=== PATIENT | male | born 1960 | race Caucasian/White ===

== ENCOUNTER 2017-01-27 13:38 | Observation (INO) ==
--- NOTE | 2017-01-27 14:38 | Emergency Department Note ---
Disposition Clinical Impression: Nystagmus, Dizziness Disposition: Admitted As Inpatient Condition: Good Referrals: Kayla Russell SPECIAL EDUCATION CASE MANAGER [Primary Care Provider] - Forms: ED Satisfaction Letter General Adult HPI - General Chief complaint: ED Neuro Symptoms/Deficit Stated complaint: neuro sx [id number] Time Seen by Provider: 01/27/17 13:52 Source: patient Limitations: no limitations Nursing Notes Reviewed: Yes Vital Signs Reviewed: Yes - History of Present Illness HPI Narrative: 56 y/o male who reports this morning he developed headache and dizziness. Unclear at time of onset. He has a history of a old stroke which left him with right-sided occasional symptoms. He denies any other focal neurologic signs. He did not pass out. He denies having any chest pain or shortness of breath. No new numbness or tingling in the arms or feet. He denies any abdominal pain or fever. He also admits to some intermittent confusion which began about that time. He is not currently feeling it. Pain Scale: 0 Consistency: constant Improves with: nothing Worsens with: nothing Associated symptoms: Reports: denies other symptoms Treatments Prior to Arrival: none - Related Data Home Medications Medication Instructions Recorded Confirmed Aspirin 81 mg PO DAILY 11/02/15 04/18/16 FLUoxetine HCl [Prozac] 20 mg PO DAILY 11/02/15 04/18/16 LORazepam [Ativan] 0.5 mg PO Q6H PRN 11/02/15 04/18/16 Lansoprazole [Prevacid] 30 mg PO DAILY 11/02/15 04/18/16 Lovastatin 40 mg PO HS 11/02/15 04/18/16 Bupropion HCl [Wellbutrin Xl] 300 mg PO DAILY 04/18/16 04/18/16 Gabapentin [Neurontin] 100 mg PO TID 04/18/16 04/18/16 Losartan Potassium [Cozaar] 50 mg PO DAILY 04/18/16 04/18/16 Metoprolol [Lopressor] 25 mg PO BID 04/18/16 04/18/16 hydrOXYzine HCl [Hydroxyzine HCl] 25 mg PO Q8H 04/18/16 04/18/16 Lisinopril [Zestril] 10 mg PO DAILY 11/17/16 11/17/16 Previous Rx's Medication Instructions Recorded cephALEXin [Keflex] 500 mg PO BID #10 capsule 04/18/16 Acetaminophen [Tylenol] 500 mg PO Q6HR PRN #20 tablet 11/17/16 PredniSONE [Isidoro] 5 mg PO DAILY 6 Days tablet. 11/17/16 Allergies Allergy/AdvReac Type Severity Reaction Status Date / Time No Known Allergies Allergy Verified 01/27/17 13:46 All systems ED: reviewed and negative except as stated. Constitutional: Denies: fever Eyes: Denies: vision change ENT ED: Denies: throat pain Cardiovascular: Denies: chest pain Respiratory: Denies: cough Gastrointestinal: Denies: abdominal pain Genitourinary: Denies: dysuria Musculoskeletal: Denies: back pain Integumentary: Denies: rash Endocrine: Denies: fatigue Past Medical History - Past Medical History Medical history: Reports: CVA, hyperlipidemia, hypertension Psychiatric history: Reports: anxiety, depression - Social History Smoking Status: Never smoker Smokeless Tobacco Status: No Alcohol use: Reports: none Drug use: Reports: none Physical Exam - General Limitations: no limitations General appearance: alert - Head Head exam: atraumatic - Eye Eye exam: Present: PERRL, other (Bilateral nystagmus during on extraocular motion testing. Sustained.) - ENT ENT exam: normal exam, normal oropharynx - Chest Chest inspection: Present: normal inspection - Respiratory Respiratory exam: Present: normal lung sounds bilaterally. Absent: respiratory distress - Cardiovascular Cardiovascular exam: Present: regular rate, normal rhythm - Abdominal Exam Abdominal exam: Present: soft, Non-Tender - Extremities Exam Extremities exam: Present: normal inspection - Neurological Exam Neurological exam: Present: alert, oriented X3 - Psychiatric Psychiatric exam: Present: normal affect, normal mood - Skin Skin exam: Present: warm, dry Course Course Narrative: I will not call a stroke alert because he does not have any focal neurologic signs at this time. However he does have bilateral horizontal nystagmus on extraocular motion testing. NIH scale of 0. Physical exam does not demonstrate any deficits. We will do a CT scan of the head and basic lab work. CT negative. Labwork negative. EKG normal. CXR negative. Will admit for an MRI due to concern for CVA due to new onset bilateral nystagmus at rest. Vital Signs Temperature 98.8 F 01/27/17 13:43 Pulse Rate 80 01/27/17 13:43 Respiratory Rate 18 01/27/17 13:43 Blood Pressure 151/100 01/27/17 13:43 O2 Sat by Pulse Oximetry 88 01/27/17 13:43 Temperature 98.8 F 01/27/17 13:43 Pulse Rate 69 01/27/17 15:16 Respiratory Rate 18 01/27/17 15:16 Blood Pressure 134/81 01/27/17 15:16 O2 Sat by Pulse Oximetry 94 01/27/17 15:16 Oxygen Delivery Oxygen Delivery Room Air Medical Decision Making - MDM Narrative Medical decision making narrative: I examined this patient and my medical decision-making was reviewed with the Resident Physician. I agree with the documented findings, disposition and treatment plan as described except to the extent set forth below. Patient was seen and evaluated on arrival with Dr. Joseph in EMS, they thought initially started having some weakness around 12:15 turns out that may have been 11:15 or could have been even before then history is unclear. He has had a history of stroke on the right side but has recovered he does have some slurring of his speech, he also has nystagmus which is fairly impressive and also vertiginous symptoms. The question is whether this could be stroke if this could be true vertigo for be something different he denies any nausea denies any chest pain is no focal cerebellar deficits on exam except as mentioned above. When you speaking with him it sounds like the onset of the symptoms are outside the three -hour window of CVA workup. We went ahead and CT does head here which shows no acute signs of stroke. His labs look good. Were going to bring him in for neuro consult MRI and further workup. He is in agreement with that plan. Impression is new onset vertigo with nystagmus and weakness. Rule out subacute CVA. - Medical Records Medical records reviewed: Yes I reviewed the patient's medical records. - Lab Data Lab results reviewed: Yes I reviewed the patient's lab results. Result diagrams: 01/27/17 14:43 01/27/17 14:43 Lab Results 01/27/17 01/27/17 01/27/17 Range/Units 14:43 14:43 14:43 WBC 6.1 (4.3-11.1) K/mcL RBC 4.93 (4.19-5.50) M/mcL Hgb 13.8 (12.9-16.9) g/dL Hct 42.5 (37.5-50.1) % MCV 86.2 (83.0-100.0) fL MCH 28.0 (28.0-33.3) pg MCHC 32.5 (31.6-35.5) g/dL RDW 13.8 (11.5-14.5) % Plt Count 288 (140-400) K/mcL MPV 9.4 (9.4-12.4) fL Immature Gran % 0.3 (0-4) % Seg Neutrophils % 60.6 % Lymphocytes % 30.5 % Monocytes % 6.2 % Eosinophils % 1.6 % Basophils % 0.8 % Neutrophils # 3.7 (1.6-8.9) K/mcL Lymphocytes # 1.9 (0.6-4.6) K/mcL Monocytes # 0.4 (0.0-1.3) K/mcL Eosinophils # 0.1 (0.0-0.6) K/mcL Basophils # 0.1 (0.0-0.2) K/mcL Immature Plt Fraction 3.0 (1.1-6.1) % Sodium 137 (136-145) mEq/L Potassium 4.1 (3.5-4.5) mEq/L Chloride 109 (98-109) mEq/L Carbon Dioxide 20 (19-29) mEq/L BUN 13 (8-26) mg/dL Creatinine 1.08 (0.72-1.25) mg/dL Est GFR ( Amer) > 60 (> 60) Est GFR (Non-Af Amer) > 60 (> 60) BUN/Creatinine Ratio 12 (6-26) Glucose 91 (70-99) mg/dL Calculated Osmolality 284 (280-300) Calcium 9.0 (8.6-10.8) mg/dL Troponin I 0.00 (0-0.03) ng/mL - Radiology Data Radiology results reviewed: Yes I reviewed the patient's radiology results. - EKG Data EKG #1 EKG attestation: Yes I reviewed and interpreted this EKG. EKG shows normal: sinus rhythm Rate: normal Rhythm: NSR [place]/QRS: normal When compared to previous EKG there are: no significant changes Interpretation: no acute changes
[2017-01-27 14:49] LABS: Basophils # 0.1 K/mcL (0.0-0.2); Basophils % 0.8 %; Eosinophils # 0.1 K/mcL (0.0-0.6); Eosinophils % 1.6 %; Hematocrit 42.5 % (37.5-50.1); Hemoglobin 13.8 g/dL (12.9-16.9); Immature Granulocytes % 0.3 % (0-4); Lymphocytes # 1.9 K/mcL (0.6-4.6); Lymphocytes % 30.5 %; Mean Corpuscular HGB Conc 32.5 g/dL (31.6-35.5); Mean Corpuscular Volume 86.2 fL (83.0-100.0); Mean Platelet Volume 9.4 fL (9.4-12.4); Monocytes # 0.4 K/mcL (0.0-1.3); Monocytes % 6.2 %; Neutrophils # 3.7 K/mcL (1.6-8.9); Platelet Count 288 K/mcL (140-400); Red Blood Count 4.93 M/mcL (4.19-5.50); Red Cell Distribution Width 13.8 % (11.5-14.5); Segmented Neutrophils % 60.6 %
[2017-01-27 15:02] LABS: BUN/Creatinine Ratio 12 (6-26); Blood Urea Nitrogen 13 mg/dL (8-26); Carbon Dioxide 20 mEq/L (19-29); Chloride 109 mEq/L (98-109); Glucose 91 mg/dL (70-99); Osmolality,Calculated 284 (280-300); Potassium 4.1 mEq/L (3.5-4.5); Sodium 137 mEq/L (136-145); eGFR For African Americans > 60 (> 60); eGFR For Non-African Americans > 60 (> 60)
[2017-01-27] MEDS ORDERED: Aspirin 325 MG TABLET PO ONE (15:14)
[2017-01-27] MEDS ORDERED: SUMAtriptan succinate 50 MG TABLET PO PRN (16:17)
[2017-01-27] MEDS ORDERED: hydrOXYzine pamoate 25 MG CAPSULE PO PRN (16:17)
[2017-01-27] MEDS ORDERED: Naloxone 0.4 MG/ML INJ IVP PRN (16:21)
--- NOTE | 2017-01-27 19:04 | Internal Med History&Physical ---
<eMlchor Moreno J - Last Filed: 01/27/17 18:57> Date of Encounter: 01/27/17 Time of Encounter: 18:57 Assessment and Plan (1) Vertigo Current visit: Yes Status: Acute Intermittent dizziness ongoing over the last couple of weeks. Dizziness is not exacerbated by exertion or relieved by rest. Does not appear to be inner ear pathology as it does not occurr with position change or head movement. Has seen PCP for this issues and for LUE and LLE extremity N/T. MRI revealed C- Spine DDD. MRI of head to r/o ischemic causes echocardiogram to r/o cardiac cause carotid Dopplers to assess for ischemic causes Orthostatic VS (2) TIA (transient ischemic attack) Current visit: Yes Status: Suspected Qualifiers: Qualified Code(s): G45.9 - Transient cerebral ischemic attack, unspecified (3) DVT prophylaxis Current visit: Yes Status: Acute Risk for DVT d/t prolonged immobility caused by hospital stay. Start Lovenox 40mg SC QD. Internal Medicine - H&P: HPI Chief complaint: H/A, dizziness, and CVA like symptoms Admitted From: Home Plans for Post Hospital Care: Home History of present illness: Mr. Todd is a 56 year old male with a PMH of prior CVA with intermittent left- sided deficits, HLD, HTN, anxiety and depression, migraines. Presented to [facility] today with headache, dizziness and strokelike symptoms. He reports that this morning he woke up had a unilateral left headache, slurred speech and was extremely dizzy. Additionally he notes left upper and lower extremity weakness, numbness and tingling that is intermittent. He denies any syncope, facial droop, or gait changes. His slurred speech, H/A , and dizziness have improved at this time. Workup in the ED unremarkable, CT of the head negative for hemorrhage, midline shift, mass effect or ischemia. He had an MRI asked weak of the cervical spine due to similar symptoms, MRI found cervical degenerative disc disease, which is likely responsive for his left upper extremity weakness numbness and tingling. MRI completed today was negative for ischemia. Troponin negative, metabolic panel unremarkable, CBC unremarkable. He does not appear to have had a stroke or TIA. Past Med Surg Social Fam HX - Past Medical History Medical history: CVA, hyperlipidemia, hypertension Psychiatric history: anxiety, depression - Social History Smoking Status: Never smoker Smokeless Tobacco Status: No Alcohol use: none Drug use: none - Family History Mother Name: Jocelin Todd Living Status: Age at : 63 Cause of : CHF Hx Family Cardiac Disorders: Yes Internal Medicine - H&P: Meds Aspirin 81 mg PO DAILY 11/02/15 [History] FLUoxetine HCl [Prozac] 20 mg PO DAILY 11/02/15 [History] LORazepam [Ativan] 0.5 mg PO QAM 11/02/15 [History] Lansoprazole [Prevacid] 30 mg PO DAILY 11/02/15 [History] Lovastatin 40 mg PO HS 11/02/15 [History] Bupropion HCl [Wellbutrin Xl] 300 mg PO DAILY 04/18/16 [History] Losartan Potassium [Cozaar] 50 mg PO DAILY 04/18/16 [History] Metoprolol [Lopressor] 25 mg PO BID 04/18/16 [History] Gabapentin [Neurontin] 300 mg PO TID 01/27/17 [History] [place]-3/Dha/Epa/Fish Oil [Fish Oil 1,000 mg Softgel] 1,000 mg PO DAILY 01/27/17 [History] SUMAtriptan succinate [Imitrex] 50 mg PO DAILY PRN 01/27/17 [History] hydrOXYzine pamoate [HydrOXYzine Pamoate] 25 mg PO Q8H PRN 01/27/17 [History] 3 Allergy/AdvReac Type Severity Reaction Status Date / Time No Known Allergies Allergy Verified 01/27/17 13:46 All Systems PM: A 10-system review of systems was performed and is negative for pertinent findings except as documented above in the HPI. - Constitutional Constitutional: fatigue - EENT Eyes: no blurry vision, no change in vision, no diplopia, no discharge, no loss of peripheral vision, no loss of vision, no pain, no photophobia Ears: no ear discharge, no ear pain, no tinnitus Nose, mouth and throat: no dysphagia, no nasal discharge, no neck pain, no sore throat - Cardiovascular Cardiovascular ROS IM: no chest pain, no diaphoresis, no dyspnea, no lightheadedness, no palpitations, no syncope - Respiratory Respiratory: no cough, no dyspnea, no wheezing, no excessive phlegm production - Gastrointestinal Gastrointestinal: no abdominal pain, no diarrhea, no hematemesis, no hematochezia, no melena, no nausea, no vomiting - Musculoskeletal Musculoskeletal ROS IM: no numbness, no tingling - Integumentary Integumentary IM: no rash, no unusual bruising - Neurological Neurological ROS: as per HPI, abnormal speech, dizziness, headache(s), no abnormal gait, no abnormal hearing, no abnormal movements, no behavioral changes , no confusion, no convulsions, no focal weakness, no frequent falls, no lack of coordination, no loss of vision, no numbness, no tingling, no tremor(s) - Hematologic/Lymphatic Hematologic/Lymphatic: no easy bruising - Constitutional Vitals: Temp Pulse Resp BP Pulse Ox 98.3 F 73 16 147/91 95 01/27/17 18:19 01/27/17 18:19 01/27/17 18:19 01/27/17 18:19 01/27/17 18:19 General appearance: Present: cooperative, A&O X 3, no acute distress, answers questions appropriately - Head Head exam: Present: atraumatic, normocephalic - Eye Eye exam: Present: EOMI, PERRL, conjuntiva pink, sclera anicteric Pupils: Present: PERRL - Neck Neck exam general surgery: Present: supple, trachea midline. Absent: lymphadenopathy - Respiratory Respiratory exam: Present: CTAB. Absent: accessory muscle use, rales, rhonchi, wheezes - Cardiovascular Cardiovascular exam: Present: RRR, +S1, +S2. Absent: diastolic murmur, gallop, rubs, systolic murmur - GI/Abdominal GI/Abdominal exam: Present: normal bowel sounds, soft, no peritoneal signs. Absent: distended, tenderness - Extremities Exam Extremities exam: Present: warm, radial pulses palpable and symmetrical. Absent : calf tenderness, cyanotic, pedal edema - Neurological Exam Neurological exam: Present: alert, CN II-XII intact, oriented X3. Absent: strengths equal and symetr throughout, pronater drift, facial droop, speech deficit - Expanded Neurological Exam Neuro motor strength exam: LUE: 4, RUE: 5, LLE: 5, RLE: 5 Coma Scale Eye Opening: Spontaneous Coma Scale Motor Response: Obeys Commands Coma Scale Verbal Response: Oriented Coma Scale Total: 15 - Psychiatric Psychiatric exam: Present: normal affect, normal mood - Skin Skin exam: Present: dry, intact Internal Med - H&P Results - Labs CBC & Chem 7: 01/27/17 14:43 01/27/17 14:43 - Diagnostic Studies MRI - head Status: image reviewed by me Additional comments: No evidence of ischemia CT scan - head Status: image reviewed by me Additional comments: No mass effect, midline shift, hemorrhage or ischemia. Chest x-ray Status: image reviewed by me Additional comments: Bibasilar atelectasis or infiltrates. <Moira Yen - Last Filed: 01/28/17 12:36> Date of Encounter: 01/28/17 Internal Medicine - H&P: HPI History of present illness: Mr. Todd is a 56 year old male All Systems PM: A 10-system review of systems was performed and is negative for pertinent findings except as documented above in the HPI. - Constitutional Vitals: Temp Pulse Resp BP Pulse Ox 97.7 F 60 14 135/86 96 01/28/17 11:36 01/28/17 11:36 01/28/17 11:36 01/28/17 11:36 01/28/17 11:36 Internal Med - H&P Results - Labs CBC & Chem 7: 01/28/17 03:54 01/28/17 03:54 Labs: Short CBC 01/28/17 Range/Units 03:54 WBC 5.8 (4.3-11.1) K/mcL Hgb 13.5 (12.9-16.9) g/dL Hct 42.7 (37.5-50.1) % Plt Count 276 (140-400) K/mcL Neutrophils # 3.3 (1.6-8.9) K/mcL BMP 01/28/17 03:54 Sodium 138 Potassium 3.9 Chloride 106 Carbon Dioxide 24 BUN 13 Creatinine 1.13 Glucose 99 Calcium 9.1 Liver Function 01/28/17 Range/Units 03:54 Total Bilirubin 1.0 (0.2-1.2) mg/dL AST 19 (5-34) Units/L ALT 19 (0-55) Units/L Alkaline Phosphatase 76 (38-126) Units/L Albumin 3.2 L (3.5-5.0) g/dL - Attending Attestation I have personally performed a face to face evaluation on this patient and I discussed the assessment and plan with the nurse practitioner. I have reviewed and agree with the documented care plan. History and Exam by me shows: Mr. Todd is a 56 year old male with a PMH of prior CVA with intermittent left- sided deficits, HLD, HTN, anxiety and depression, migraines. Presented to [facility] today with headache, dizziness and strokelike symptoms. He reports that this morning he woke up had a unilateral left headache, slurred speech and was extremely dizzy. Additionally he notes left upper and lower extremity weakness, numbness and tingling that is intermittent. He denies any syncope, facial droop, or gait changes. His slurred speech, H/A , and dizziness have improved at this time. Workup in the ED unremarkable, CT of the head negative for hemorrhage, midline shift, mass effect or ischemia. He had an MRI asked weak of the cervical spine due to similar symptoms, MRI found cervical degenerative disc disease, which is likely responsive for his left upper extremity weakness numbness and tingling. Gen: A, A, O x3 Chest : Diminished BS b/l Neuro: No acute focal deficits a/p 1. Acute vertigo 2. Acute TIA MRI of brain - negative for ischemia check 2 D Echo and Carotid doppler PT / OT eval on ASA
[2017-01-27] MEDS: Gabapentin 300 MG CAPSULE PO SCH (21:00)
[2017-01-28 04:13] LABS: Basophils % 0.7 %; Eosinophils # 0.1 K/mcL (0.0-0.6); Eosinophils % 1.7 %; Hematocrit 42.7 % (37.5-50.1); Hemoglobin 13.5 g/dL (12.9-16.9); Immature Granulocytes % 0.7 % (0-4); Immature Platelets 3.5 % (1.1-6.1); Lymphocytes # 1.9 K/mcL (0.6-4.6); Lymphocytes % 33.2 %; Mean Corpuscular HGB Conc 31.6 g/dL (31.6-35.5); Mean Corpuscular Hemoglobin 27.5 pg (28.0-33.3); Mean Platelet Volume 9.5 fL (9.4-12.4); Monocytes # 0.4 K/mcL (0.0-1.3); Monocytes % 7.2 %; Neutrophils # 3.3 K/mcL (1.6-8.9); Platelet Count 276 K/mcL (140-400); Red Blood Count 4.91 M/mcL (4.19-5.50); Red Cell Distribution Width 13.9 % (11.5-14.5); Segmented Neutrophils % 56.5 %
[2017-01-28 04:30] LABS: Alanine Aminotransferase 19 Units/L (0-55); Albumin 3.2 g/dL (3.5-5.0); Albumin/Globulin Ratio 0.9 (1.1-2.2); Alkaline Phosphatase 76 Units/L (38-126); Aspartate Amino Transferase 19 Units/L (5-34); BUN/Creatinine Ratio 12 (6-26); Blood Urea Nitrogen 13 mg/dL (8-26); Calcium 9.1 mg/dL (8.6-10.8); Carbon Dioxide 24 mEq/L (19-29); Chloride 106 mEq/L (98-109); Chol/HDL Ratio 5.4 (0-4.9); Cholesterol 205 mg/dL (< 200); Globulin 3.5 g/dL (2.4-3.5); Glucose 99 mg/dL (70-99); HDL Cholesterol 38 mg/dL (40-59); LDL Cholesterol,Calculated 122 mg/dL (0-99); Osmolality,Calculated 286 (280-300); Potassium 3.9 mEq/L (3.5-4.5); Sodium 138 mEq/L (136-145); Total Protein 6.7 g/dL (6.0-8.3); Triglycerides 223 mg/dL (< 150); eGFR For African Americans > 60 (> 60); eGFR For Non-African Americans > 60 (> 60)
[2017-01-28] MEDS ORDERED: *HR* Enoxaparin 40 MG/0.4 ML SYRINGE SQ SCH (06:00)
[2017-01-28] MEDS ORDERED: Perflutren Lipid Microsphere 1.3 ML in 0.9 % Sodium Chloride 8.7 ML IVP ONE (07:30)
[2017-01-28] MEDS ORDERED: Perflutren Lipid Microsphere 2 ML VIAL ONE (07:35)
[2017-01-28] MEDS ORDERED: Aspirin 81 MG TAB.CHEW PO SCH (09:00)
[2017-01-28] MEDS ORDERED: *HR* LORazepam 0.5 MG TABLET PO SCH (09:00)
[2017-01-28] MEDS ORDERED: BuPROPion XL (24 HR) 150 MG TABLET PO SCH (09:00)
[2017-01-28] MEDS ORDERED: (Omega-3/Dha/Epa/Fish Oil [Fish Oil 1,000 Mg Softgel]) PO SCH (09:00)
[2017-01-28] MEDS ORDERED: FLUoxetine 20 MG CAPSULE PO SCH (09:00)
[2017-01-28] MEDS: Gabapentin 300 MG CAPSULE PO SCH (09:11)
--- NOTE | 2017-01-28 10:55 | Internal Med Progress Note ---
<HortenciatamaralanMoustapha sanchez - Last Filed: 01/28/17 17:00> Date of Encounter: 01/28/17 Time of Encounter: 10:35 - Assessment and plan (1) Vertigo Current Visit: Yes Status: Acute Assessment and plan: Intermittent dizziness ongoing over the last couple of weeks. Dizziness is not exacerbated by exertion or relieved by rest. Does not appear to be inner ear pathology as it does not occur with position change or head movement. MRI of head reveals no acute infarct. CT of head reveal no acute intracranial abnormalities. Troponin negative, metabolic panel unremarkable, CBC unremarkable. Patient has Saccadic horitzontal nystagmus on examination. - Echocardiogram results pending. - B/L carotid doppler results pending. (2) TIA (transient ischemic attack) Current Visit: Yes Status: Suspected Assessment and plan: See plan above. Qualifiers: Qualified Code(s): G45.9 - Transient cerebral ischemic attack, unspecified (3) DVT prophylaxis Current Visit: Yes Status: Acute Assessment and plan: On lovenox. - Subjective Interval history: Mr. Todd is a 56 year old male with a PMH of prior CVA with intermittent left- sided deficits, HLD, HTN, anxiety and depression, migraines. Presented to [facility] today with headache, dizziness and strokelike symptoms. Patient says that he was sitting in his chair at work when he suddenly started to feel dizzy, nauseous, and had vision blurriness. He was also complaining of a unilateral ZIEGLER. Patient also states that he was experiencing slurring of speech. He denies LOC. Additionally he notes left upper and lower extremity weakness, numbness and tingling that is intermittent. He denies any chest pain. He denies any syncope, facial droop, or gait changes. When seen today, patient denies any ZIEGLER, dizziness, nausea, vomiting, chest pain, or abdominal pain. He admits to SOB, that it has been at his baseline. - Constitutional Vitals: Temp Pulse Resp BP Pulse Ox 97.7 F 59 18 143/91 95 01/28/17 07:19 01/28/17 07:19 01/28/17 07:19 01/28/17 07:19 01/28/17 07:19 General appearance: Present: cooperative, A&O X 3, morbidly obese, no acute distress, answers questions appropriately - Respiratory Respiratory exam: Present: CTAB. Absent: respiratory distress, rhonchi, wheezes , tachypnea - Cardiovascular Cardiovascular exam: Present: RRR, +S1, +S2. Absent: diastolic murmur, systolic murmur - GI/Abdominal GI/Abdominal exam: Present: normal bowel sounds, soft. Absent: guarding, rebound, tenderness - Neurological Exam Neurological exam: Present: CN II-XII intact, reflexes normal. Absent: facial droop, speech deficit Additional comments: Patient has horizontal nystagmus in both directions. Patient has decreased sensation on his LUE and LLE. He displays 5/5 strength in his UE and LE bilaterally. Internal Medicine: Result - Labs CBC & Chem 7: 01/28/17 03:54 01/28/17 03:54 Labs: Short CBC 01/28/17 Range/Units 03:54 WBC 5.8 (4.3-11.1) K/mcL Hgb 13.5 (12.9-16.9) g/dL Hct 42.7 (37.5-50.1) % Plt Count 276 (140-400) K/mcL Neutrophils # 3.3 (1.6-8.9) K/mcL BMP 01/28/17 03:54 Sodium 138 Potassium 3.9 Chloride 106 Carbon Dioxide 24 BUN 13 Creatinine 1.13 Glucose 99 Calcium 9.1 Liver Function 01/28/17 Range/Units 03:54 Total Bilirubin 1.0 (0.2-1.2) mg/dL AST 19 (5-34) Units/L ALT 19 (0-55) Units/L Alkaline Phosphatase 76 (38-126) Units/L Albumin 3.2 L (3.5-5.0) g/dL Consult Discharge Plan - Plan Instructions: Heart Failure (GEN) Referrals: Kayla Russell HARVEST CONTRACTOR [Primary Care Provider] - Prescriptions: Aspirin 325 mg PO DAILY #30 tablet <Messi Aguayo - Last Filed: 01/28/17 17:15> Date of Encounter: 01/28/17 - Constitutional Vitals: Temp Pulse Resp BP Pulse Ox 97.7 F 60 14 135/86 96 01/28/17 11:36 01/28/17 11:36 01/28/17 11:36 01/28/17 11:36 01/28/17 11:36 Internal Medicine: Result - Labs CBC & Chem 7: 01/28/17 03:54 01/28/17 03:54 Labs: Short CBC 01/28/17 Range/Units 03:54 WBC 5.8 (4.3-11.1) K/mcL Hgb 13.5 (12.9-16.9) g/dL Hct 42.7 (37.5-50.1) % Plt Count 276 (140-400) K/mcL Neutrophils # 3.3 (1.6-8.9) K/mcL BMP 01/28/17 03:54 Sodium 138 Potassium 3.9 Chloride 106 Carbon Dioxide 24 BUN 13 Creatinine 1.13 Glucose 99 Calcium 9.1 Liver Function 01/28/17 Range/Units 03:54 Total Bilirubin 1.0 (0.2-1.2) mg/dL AST 19 (5-34) Units/L ALT 19 (0-55) Units/L Alkaline Phosphatase 76 (38-126) Units/L Albumin 3.2 L (3.5-5.0) g/dL - Attending Attestation I examined this patient and my medical decision-making was reviewed with the Resident Physician. I agree with the documented findings, disposition and treatment plan as described except to the extent set forth below. Patient presented with dizziness and slurred speech. On exam he is morbidly obese, no acute distress. Heart tones are regular with no murmur. Plan: Continue TIA workup. Monitor blood pressure. Continue heart monitoring.
[2017-01-28 11:40] VITALS: BP 135/86
--- NOTE | 2017-01-28 13:55 | Discharge Summary ---
<Moustapha Wolff - Last Filed: 01/28/17 16:57> Date of Encounter: 01/28/17 Time of Encounter: 10:35 - Discharge Diagnosis (1) Vertigo Priority: Primary Status: Acute (2) TIA (transient ischemic attack) Priority: Primary Status: Suspected Qualifiers: Qualified Code(s): G45.9 - Transient cerebral ischemic attack, unspecified (3) DVT prophylaxis Priority: Primary Status: Acute - Discharge Medications Prescriptions: Aspirin 325 mg PO DAILY #30 tablet Home Medications: FLUoxetine HCl [Prozac] 20 mg PO DAILY 11/02/15 [History] LORazepam [Ativan] 0.5 mg PO QAM 11/02/15 [History] Lansoprazole [Prevacid] 30 mg PO DAILY 11/02/15 [History] Lovastatin 40 mg PO HS 11/02/15 [History] Bupropion HCl [Wellbutrin Xl] 300 mg PO DAILY 04/18/16 [History] Losartan Potassium [Cozaar] 50 mg PO DAILY 04/18/16 [History] Metoprolol [Lopressor] 25 mg PO BID 04/18/16 [History] Gabapentin [Neurontin] 300 mg PO TID 01/27/17 [History] [place]-3/Dha/Epa/Fish Oil [Fish Oil 1,000 mg Softgel] 1,000 mg PO DAILY 01/27/17 [History] SUMAtriptan succinate [Imitrex] 50 mg PO DAILY PRN 01/27/17 [History] hydrOXYzine pamoate [HydrOXYzine Pamoate] 25 mg PO Q8H PRN 01/27/17 [History] Aspirin 325 mg PO DAILY #30 tablet 01/28/17 [Rx] Allergies/Adverse Reactions: 3 Allergy/AdvReac Type Severity Reaction Status Date / Time No Known Allergies Allergy Verified 01/27/17 13:46 Procedures/tests Complete & Pending: Procedures Performed prior 72 hours Category Date Time Status EV carotid duplex imaging BI Stat Y 01/28/17 10:00 Completed EV echocardiogram w enhance Stat Y 01/28/17 10:00 Completed Date of admission: 01/27/17 16:20 Primary care physician: Kayla Russell CNP Discharging clinician: Messi Davenport) Anticipated date of discharge: 01/28/17 - Patient Status Disposition: Home, Self-Care Condition: Good Functional capacity at discharge: independent ambulation Overall status at discharge: patient is progressing back to baseline - Discharge Instructions Instructions: Heart Failure (GEN) Follow Up With: Kayla Russell CNP [Primary Care Provider] - - Diet and Activity Activity: resume usual activities as tolerated Diet: low fat, low cholesterol Interval History: Mr. Todd is a 56 year old male with a PMH of prior CVA with intermittent left- sided deficits, HLD, HTN, anxiety and depression, migraines. Presented to [facility] today with headache, dizziness and strokelike symptoms. Hospital course: Mr. Todd is a 56 year old male with a PMH of prior CVA with intermittent left- sided deficits, HLD, HTN, anxiety and depression, migraines. Presented to [facility] today with headache, dizziness and strokelike symptoms. Patient says that he was sitting in his chair at work when he suddenly started to feel dizzy, nauseous, and had vision blurriness. He was also complaining of a unilateral ZIEGLER. Patient also states that he was experiencing slurring of speech. He denies LOC. Additionally he notes left upper and lower extremity weakness, numbness and tingling that is intermittent. He denies any chest pain. He denies any syncope, facial droop, or gait changes. His dizziness is not exacerbated by exertion or relieved by rest. It Does not appear to be inner ear pathology as it does not occur with position change or head movement. MRI of head revealed no acute infarct. CT of head revealed no acute intracranial abnormalities. Troponins were negative, metabolic panel unremarkable, CBC unremarkable. Carotid u/s revealed non- stenotic plaques bilaterally. Echo revealed an EF of 60%. When seen today, patient denies any ZIEGLER, dizziness, nausea, vomiting, chest pain, or abdominal pain. He admits to SOB, but that has been at his baseline. He displayed no slurring on speech. He had decreased sensation on his LUE and LLE, but he states that it has been his baseline. His motor strength was intact bilaterally. Patient does have a horizontal nystagmus on exam. Patient does not appear to have suffered a TIA and his symptoms might be attributed to his migrane. Patient will be discharged with 325 mg aspirin for TIA prevention since he presents with risk factors of HTN, hyperlipidemia, morbid obesity, and previous CVA. Patient should also adhere to a low-fat diet decrease his risk factors. He should follow-up with his PCP to monitor the progress of his risk factor reduction. - Time Spent with Patient Total time spent providing and/or coordinating discharge services: Greater than 30 minutes - Constitutional Vitals: Temp Pulse Resp BP Pulse Ox 97.7 F 60 14 135/86 96 01/28/17 11:36 01/28/17 11:36 01/28/17 11:36 01/28/17 11:36 01/28/17 11:36 General appearance: Present: cooperative, A&O X 3, morbidly obese, no acute distress, answers questions appropriately - Respiratory Respiratory exam: Present: CTAB. Absent: respiratory distress, rhonchi, wheezes , tachypnea - Cardiovascular Cardiovascular exam: Present: RRR, +S1, +S2. Absent: diastolic murmur, systolic murmur - GI/Abdominal GI/Abdominal exam: Present: normal bowel sounds, soft. Absent: guarding, rebound, tenderness - Neurological Exam Neurological exam: Present: CN II-XII intact, oriented X3, reflexes normal, strengths equal and symetr throughout. Absent: facial droop, speech deficit Additional comments: Decreased sensation of LUE and LLE. 5/5 motor strength in UE and LE bilaterally. <Messi Aguayo - Last Filed: 01/28/17 17:18> Date of Encounter: 01/28/17 Procedures/tests Complete & Pending: Procedures Performed prior 72 hours Category Date Time Status EV carotid duplex imaging BI Stat Y 01/28/17 10:00 Completed EV echocardiogram w enhance Stat Y 01/28/17 10:00 Completed Date of admission: 01/27/17 16:20 [facility] Mr. Todd is a 56 year old male - Time Spent with Patient Total time spent providing and/or coordinating discharge services: - Constitutional Vitals: Temp Pulse Resp BP Pulse Ox 97.7 F 60 14 135/86 96 01/28/17 11:36 01/28/17 11:36 01/28/17 11:36 01/28/17 11:36 01/28/17 11:36 - Attending Attestation I examined this patient and my medical decision-making was reviewed with the Resident Physician. I agree with the documented findings, disposition and treatment plan as described except to the extent set forth below. Patient is awake alert oriented 3. Neurologic exam is nonfocal. Echocardiogram shows normal ejection fraction. MRI of the brain shows no evidence of acute infarct. Carotid Doppler results preliminary with nonstenotic plaque bilaterally. Patient was advised to adhere to a low-cholesterol, low-calorie diet. He was advised to follow-up with PCP regarding weight loss regimen. Patient is medically stable for discharge home.
--- NOTE | 2017-01-30 08:29 | Carotid Imaging Report ---
Carotid Duplex Patient Name:Stevie Todd Order Number:[id number] Procedure Date:01/28/2017 Date:1960Age:56 yrs Gender:Male Lt BP:136 / 83 mmHg Rt.BP:136 / 83 mmHgHeart Rate: Location:[facility] Room #: 13 Department Head:Mary Kiser, RDCS Referring MD:Melchor Moreno CNP hearing screen coordinator:Kayla Russell CNP Reading MD:Julio Sanchez MD Study Quality:Technically Difficult Primary Indications:Dizziness Risk Factors Yes/No Hypertension Yes Diabetes No Hypercholesterolemia Yes Smoker Previous Quit Hx of TIA No Hx of CVA No Hx of CAD/PTCA No Previous Vascular Surgery No Impressions: Findings: Bilateral carotid system has nonstenotic plaque. Findings Carotid Duplex: Right: The right proximal common carotid artery has a PSV of 86 cm/s and a EDV of 21 cm/s. The right mid common carotid artery has turbulent flow without plaque with a PSV of 118 cm/s and a EDV of 31 cm/s. The right distal common carotid artery has a PSV of 94 cm/s and a EDV of 30 cm/s. There is nonstenotic plaque in the right bifurcation with a PSV of 91 cm/s and a EDV of 21 cm/s. There is irregular heterogeneous plaque. The right proximal internal carotid artery has a PSV of 67 cm/s and a EDV of 28 cm/s. The right mid internal carotid artery has a PSV of 74 cm/s and a EDV of 33 cm/s. There is nonstenotic plaque in the right distal internal carotid artery with a PSV of 84 cm/s and a EDV of 31 cm/s. There is irregular heterogeneous plaque. The right eca has a PSV of 108 cm/s and a EDV of 13 cm/s. The right vertebral artery has a PSV of 42 cm/s and a EDV of 18 cm/s. DIVING DISTAL ICA SEGMENT. Left: The left proximal common carotid artery has turbulent flow without plaque with a PSV of 118 cm/s and a EDV of 31 cm/s. The left mid common carotid artery has a PSV of 100 cm/s and a EDV of 26 cm/s. The left distal common carotid artery has a PSV of 97 cm/s and a EDV of 23 cm/s. There is nonstenotic plaque in the left bifurcation with a PSV of 110 cm/s and a EDV of 22 cm/s. There is irregular heterogeneous plaque. The left proximal internal carotid artery has a PSV of 83 cm/s and a EDV of 39 cm/s. The left mid internal carotid artery has a PSV of 92 cm/s and a EDV of 39 cm/s. The left distal internal carotid artery has a PSV of 83 cm/s and a EDV of 39 cm/s. There is nonstenotic plaque in the left eca with a PSV of 115 cm/s and a EDV of 14 cm/s. There is irregular heterogeneous plaque. The left vertebral artery has a PSV of 42 cm/s and a EDV of 11 cm/s. DIFFICULTY VISUALIZING TRUE DISTAL ICA SEGMENT. PT IS MORBIDLY OBESE AT 402 LBS. Prior Study: No prior study available for comparison. Carotid Results Right PSV EDV Assessment Proximal CCA 86 21 Normal Mid CCA 118 31 Normal Distal CCA 94 30 Normal Bifurcation 91 21 Non Stenotic Plaque Proximal ICA 67 28 Normal Mid ICA 74 33 Normal Distal ICA 84 31 Non Stenotic Plaque ECA 108 13 Normal Vertebral Artery 42 18 Normal Left PSV EDV Assessment Proximal CCA 118 31 Normal Mid CCA 100 26 Normal Distal CCA 97 23 Normal Bifurcation 110 22 Non Stenotic Plaque Proximal ICA 83 39 Normal Mid ICA 92 39 Normal Distal ICA 83 39 Normal ECA 115 14 Non Stenotic Plaque Vertebral Artery 42 11 Normal Ratio's Right ICA/CCA Ratio: 0.70 ICA/CCA Values: 84/118 Left ICA/CCA Ratio: 0.80 ICA/CCA Values: 92/118 Updated by Julio Sanchez MD on 01/28/2017 4:27:20 PM electronically signed on 01/28/2017 4:27:31 PM with status of Final
--- NOTE | 2017-01-30 08:49 | Electrocardiograph Report ---
[address] [address] Test Date: 2017-01-27 Pat Name: Stevie Todd Department: 103 Room: 3B13 Gender: M Home Companion: : 1960 Requested By: Santos Che Order Number: [id number] Reading MD: Iman Vivar Measurements Intervals [place] Rate: 78 P: 17 CO: 175 QRS: 69 QRSD: 104 T: 19 QT: 372 QTc: 405 Interpretive Statements SINUS RHYTHM Electronically Signed On 01-29-2017 18:01:30 EDT by Iman Vivar
== END 2017-01-28 16:55 | disposition home or self-care (01) ==
LOC: 3BNU 13:38 → EMEROO 13:38 → SUATTDRO 16:20 → 3BNU 16:28
PROVIDERS: ADMIT Nurse Practitioner; ATTEND Internal Medicine